=== PATIENT | female | born 1990 | race Caucasian/White ===

== ENCOUNTER 2020-04-23 21:08 | Emergency (ER) | payer BC, MEDICAID, SELFPAY ==
[2020-04-23 21:10] VITALS: BP 144/82; PULSE 94; RESP 16; TEMP 37; O2SAT 99; BMI 35.4
--- NOTE | 2020-04-23 21:16 | PC.NURSE ---
pt given an ice pack and ankle elevated.
--- NOTE | 2020-04-23 21:18 | XR_ITS ---
PROCEDURE: XR FOOT RT MIN 3V CLINICAL INDICATION: fell on rt ankle Posttraumatic pain COMPARISON: XR ANKLE RT MIN 3V from 04/23/2020 FINDINGS: No fracture or dislocation. No lytic or blastic change. There is normal mineralization. The joint spaces are well-preserved. No significant degenerative/arthritic changes. No erosive changes evident. Other findings:None. IMPRESSION: No acute findings. Dictated by: Dionisio Youssef MD 04/24/2020 08:57 Electronically signed by Dionisio Youssef MD in [place] 04/24/2020 08:57
--- NOTE | 2020-04-23 21:40 | HMH.EDLOEX ---
ED Disposition Clinical Impression: Ankle sprain and strain Disposition: Home, Self-Care Condition on Discharge: Good Instructions: Sprain Additional Instructions: no wt bearing and see podiatry and nsaif Referrals: Sho Augustine [Primary Care Provider] - Edna Bowling DPM [Staff Physician] - - Critical Care Critical Care Time: No Attestation: On , the high probability of a clinically significant, sudden or life threatening deterioration of the following system(s) required my full and direct attention, intervention and personal management. The time I documented below is in addition to time spent performing reported procedures but includes the following listed in this critical care notation. Medical Decision Making - Medical Records Medical records reviewed: Yes: I reviewed the patient's medical records. - Padilla Inquiry Pt receiving controlled substance: No Vital Signs: 04/23/20 21:10 Temperature 98.6 F Temperature Source Oral Pulse Rate [Left Radial] 94 H Respiratory Rate 16 Blood Pressure [Right Arm] 144/82 H Blood Pressure Mean [Right Arm] 102 Blood Pressure Source [Right Arm] Automatic Cuff Blood Pressure Position [Right Arm] Sitting 02 Sat by Pulse Oximetry 99 Oxygen Delivery Method Room Air - Lab Data Lab results reviewed: Yes: I reviewed the patient's lab results. Orders (Tests/Meds): ORDERS Category Date Time Status XR ankle RT min 3V Stat Exams 04/23/20 21:18 Ordered XR foot RT min 3V Stat Exams 04/23/20 21:18 Ordered - Radiology Data #1 Image(s): Ankle, Foot/Toes Image Reviewed: Yes I reviewed the patient's radiology image Preliminary Findings: No Fracture Seen Lower Extremity Injury HPI - General Chief Complaint: Extremity Injury, Lower Stated Complaint: [id number] fell injured R ankle Time Seen by Provider: 04/23/20 21:20 Mode of Arrival: Wheelchair Source of Information: Patient, Spouse, Medical Record Limitations: No Limitations Description of Symptoms (Recalled from ER Triage Doc. by RN): pt stated she was walking down a hill when she fell and her right ankle was underneath her. swelling located to pt right ankle. - History of Present Illness HPI Narrative: acute injury rt foot and ankle tonight complaint: ankle injury, foot injury Onset (ago): hour(s) Injury: Right: ankle, foot Type of Injury: inversion Place: home Severity: moderate Context: fall Associated symptoms: snap/pop sensation, swelling, able to partially bear weight Other symptoms: none - Related Data Allergies Allergy/AdvReac Type Severity Reaction Status Date / Time No Known Allergies Allergy Verified 04/23/20 21:18 [facility] History - Hepatitis A Screen Drug use history?: No High risk sexual behaviors?: No History of sexually transmitted infection?: No Currently employed?: No Childcare worker?: No Do you have indoor plumbing?: Yes Do you have electricity?: Yes Attestation statement:: This patient has been screened for Hepatitis A risk factors. I have reviewed the patient's past medical history: Yes Medical History: Reports:: Diabetes Mellitus Type 1, Diabetes Mellitus Type 2 - Social History Alcohol Intake: never Occupational Status: employed ROS Obtained: Yes All systems reviewed & no additional complaints - Constitutional Constitutional: Denies fever(s) - Eyes Eyes: Denies change in vision - ENT Ears, Nose, Mouth, and Throat: Denies sore throat - Cardiovascular Cardiovascular: Denies chest pain - Respiratory Respiratory: No cough - Gastrointestinal Gastrointestingal: Denies: abdominal pain - Genitourinary Female Genitourinary: Denies hematuria - Musculoskeletal Musculoskeletal: Reports as per HPI, Reports joint pain, Reports joint swelling, Reports limited range of motion - Integumentary/Breasts Skin/Breast: Denies rash - Neurologic Neurologic: Denies focal weakness, Denies seizure-like activity Physical Exam - General Ge
[2020-04-23 22:06] VITALS: BP 132/87; PULSE 91; RESP 16; TEMP 37; O2SAT 100
== END 2020-04-23 22:09 | disposition home or self-care (01) ==
LOC: ER 22:09
PROVIDERS: Emergency Provider Emergency Medicine; PCP Pediatrics
DX: S93.401A Sprain of unspecified ligament of right ankle, initial encounter (principal); W17.81XA Fall down embankment (hill), initial encounter
CPT/HCPCS: 73610; 73630; 99283

== ENCOUNTER 2021-11-22 06:44 | Emergency (ER) | payer BC, SELFPAY ==
[2021-11-22] VITALS (8 sets, daily range): BP systolic 103–132; BP diastolic 56–74; PULSE 68–105; RESP 15–18; TEMP 36.6–37.6; O2SAT 97–100; BMI 33.6
--- NOTE | 2021-11-22 07:22 | HMH.EDGENADL ---
ED Disposition Condition on Discharge: Good - Critical Care Critical Care Time: No <Asim Thayer - Last Filed: 11/22/21 07:58> <Lashanda Montemayor - Last Filed: 11/22/21 09:45> Clinical Impression: Upper respiratory infection Qualifiers: URI type: unspecified URI Qualified Code(s): J06.9 - Acute upper respiratory infection, unspecified Disposition: Home, Self-Care Instructions: DI for Acute Bronchitis Referrals: Sho Augustine [Primary Care Provider] - Attestation: On 11/22/21, the high probability of a clinically significant, sudden or life threatening deterioration of the following system(s) required my full and direct attention, intervention and personal management. The time I documented below is in addition to time spent performing reported procedures but includes the following listed in this critical care notation. Medical Decision Making - Medical Records Medical records reviewed: Yes: I reviewed the patient's medical records. - Padilla Inquiry Pt receiving controlled substance: No <Asim Thayer - Last Filed: 11/22/21 07:58> - Lab Data Result diagrams: 11/22/21 07:19 11/22/21 07:19 <Lashanda Montemayor - Last Filed: 11/22/21 09:45> Vital Signs: 11/22/21 06:46 11/22/21 06:56 11/22/21 07:00 Temperature 99.7 F H Temperature Source Oral Pulse Rate 95 H 91 H Pulse Rate [Right Radial] 105 H Respiratory Rate 18 16 15 Blood Pressure 115/71 103/67 L Blood Pressure [Right Arm] 115/71 Blood Pressure Mean 81 79 Blood Pressure Mean [Right Arm] 85 Blood Pressure Source [Right Arm] Automatic Cuff Blood Pressure Position [Right Arm] Sitting 02 Sat by Pulse Oximetry 99 98 100 Oxygen Delivery Method Room Air 11/22/21 07:30 11/22/21 08:00 11/22/21 08:30 Temperature Temperature Source Pulse Rate 89 75 73 Pulse Rate [Right Radial] Respiratory Rate 15 16 15 Blood Pressure 113/56 L 109/57 L 115/64 Blood Pressure [Right Arm] Blood Pressure Mean 71 76 73 Blood Pressure Mean [Right Arm] Blood Pressure Source [Right Arm] Blood Pressure Position [Right Arm] 02 Sat by Pulse Oximetry 98 98 99 Oxygen Delivery Method 11/22/21 09:00 Temperature Temperature Source Pulse Rate 68 Pulse Rate [Right Radial] Respiratory Rate 16 Blood Pressure 114/70 Blood Pressure [Right Arm] Blood Pressure Mean 80 Blood Pressure Mean [Right Arm] Blood Pressure Source [Right Arm] Blood Pressure Position [Right Arm] 02 Sat by Pulse Oximetry 98 Oxygen Delivery Method - Lab Data Lab Results 11/22/21 07:19: WBC 6.4, RBC 5.13, Hgb 14.9, Hct 46.2, MCV 90.2, MCH 29.0, MCHC 32.2, RDW 13.0, Plt Count 321, MPV 10.4, Neut % (Auto) 85.3 H, Lymph % (Auto) 6.7 L, [place] % (Auto) 5.7, Eos % (Auto) 1.3, Baso % (Auto) 1.1, Neut # (Auto) 5.5, Lymph # (Auto) 0.4 L, [place] # (Auto) 0.4, Eos # (Auto) 0.1, Baso # (Auto) 0.1, Total Counted 100, Neutrophils % (Manual) 75, Lymphocytes % (Manual) 18, Monocytes % (Manual) 5, Eosinophils % (Manual) 2, Platelet Estimate Normal, RBC Morphology Normal 11/22/21 07:19: D-Dimer 0.63 H 11/22/21 07:19: Sodium 133 L, Potassium 4.1, Chloride 99, Carbon Dioxide 24, Anion Gap 14.1, BUN 8, Creatinine 0.70, Estimated Creat Clear 161, Estimated GFR 99, Est GFR ( Amer) 120, Glucose 342 H, Calcium 9.1, Total Bilirubin 0.4, AST 23, ALT 16, Alkaline Phosphatase 108, Total Protein 7.2, Albumin 4.3, Globulin 2.9, Albumin/Globulin Ratio 1.5 11/22/21 07:19: SARS-CoV-2 (PCR) Detected A, Influenza A Untype (PCR) Not detected, Influenza Type B (PCR) Not detected Orders (Tests/Meds): ED MEDICATIONS Discontinued Medications Generic Name Dose Route Start Last Admin Trade Name Freq PRN Reason Stop Dose Admin Lactated Ringer's 1,000 mls @ 999 mls/hr 11/22/21 07:15 11/22/21 07:22 Lactated Ringer's 1000 Ml Bag IV 11/22/21 08:15 999 mls/hr .Q1H1M KEITH Administration Medical Decision Narrative: Patient is a 31-year-old female who presents to the ED tod
[2021-11-22 07:42] LABS: Influenza A, PCR Not Detected (NotDetected); Influenza B, PCR Not Detected (NotDetected)
[2021-11-22 07:46] LABS: Basophils # 0.1 K/mm3 (0-0.2); Basophils % 1.1 % (0.1-2.0); Eosinophils # 0.1 K/mm3 (0.0-0.4); Eosinophils % 1.3 % (0.1-12.0); Hematocrit 46.2 % (37.0-47.0); Hemoglobin 14.9 g/dL (12.2-16.2); Lymphocytes # 0.4 K/mm3 (0.7-4.5); Lymphocytes % 6.7 % (10-50); Mean Corpuscular HGB Conc 32.2 g/dL (31.8-35.4); Mean Corpuscular Volume 90.2 fl (81-99); Mean Platelet Volume 10.4 fl (7.4-10.4); Monocytes # 0.4 K/mm3 (0.1-1.0); Monocytes % 5.7 % (1.7-9.3); Neutrophils # 5.5 K/mm3 (1.8-7.8); Neutrophils % 85.3 % (37.0-80.0); Platelet Count 321 K/mm3 (142-424); Red Blood Count 5.13 M/mm3 (4.20-5.40); White Blood Count 6.4 K/mm3 (4.8-10.8)
[2021-11-22 07:52] LABS: Chloride 99 mmol/L (98-107); Potassium 4.1 mmoL/L (3.5-5.1); Sodium 133 mmol/L (136-145)
[2021-11-22 07:55] LABS: Alanine Aminotransferase 16 U/L (12-78); Albumin Level 4.3 g/dl (3.5-5.0); Albumin/Globulin Ratio 1.5 (1.1-1.8); Alkaline Phosphatase 108 U/L (38-126); Anion Gap 14.1 mEq/L (5-15); Aspartate Amino Transferase 23 U/L (14-36); Bilirubin,Total 0.4 mg/dl (0.2-1.3); Blood Urea Nitrogen 8 mg/dl (7-17); Calcium 9.1 mg/dl (8.4-10.2); Carbon Dioxide 24 mmol/L (22.0-30.0); Creatinine Clearance Estimated 161 mL/min (50-200); Estimated Glomerular Filt Rate 99 ml/min (>60); GFR (African American) 120 ML/MIN (>60); Globulin 2.9 g/dL (1.3-3.2); Glucose 342 mg/dl (74-100); Total Protein,Serum 7.2 g/dl (6.3-8.2)
[2021-11-22 07:57] LABS: MANUAL DIFFERENTIAL MANUAL DIFFERENTIAL (MANUAL DIFF)
--- NOTE | 2021-11-22 07:58 | XR_ITS ---
PROCEDURE INFORMATION: Exam: XR Chest Exam date and time: 11/22/2021 7:58 AM Age: 31 years old Clinical indication: Shortness of breath; Additional info: Sob- covid test pending // unable to remove nipple ring TECHNIQUE: Imaging protocol: XR of the chest. Views: 1 view. COMPARISON: No relevant prior studies available. FINDINGS: Lungs: No focal airspace disease. Pleural spaces: Unremarkable. No pleural effusion. No pneumothorax. Heart/Mediastinum: Cardiomediastinal silhouette is within normal limits. Bones/joints: Unremarkable. IMPRESSION: No acute cardiopulmonary abnormality.
[2021-11-22 08:00] LABS: D-Dimer 0.63 ug/mL (0.0-0.5)
[2021-11-22 08:10] LABS: Coronavirus 19, PCR Detected (NotDetected)
[2021-11-22 08:16] LABS: Eosinophils % 2 % (0-3); Lymphocytes % 18 % (10-50); Monocytes % 5 % (2-9); Neutrophils % 75 % (42-76); Platelet Estimate Normal; RBC Morphology Normal; Total Cells Counted 100
== END 2021-11-22 09:55 | disposition home or self-care (01) ==
LOC: ER 07:46
PROVIDERS: Emergency Provider Student in an Organized Health Care Education/Training Program; PCP Pediatrics
DX: U07.1 COVID-19 (principal); J06.9 Acute upper respiratory infection, unspecified
CPT/HCPCS: 71045; 80053; 85007; 85025; 85378; 96365; 99283; C9803; U0003; U0005

== ENCOUNTER 2022-11-22 10:11 | Emergency (ER) | payer BC, SELFPAY ==
[2022-11-22 10:25] VITALS: BP 124/71; PULSE 91; RESP 20; TEMP 36.6; O2SAT 96; BMI 40.0
--- NOTE | 2022-11-22 10:27 | EXP.UTC ---
Discharge Plan Disposition Patient Disposition: Home, Self-Care Condition: Good Prescriptions Prescriptions: New azithromycin [Zithromax] 250 mg tablet 250 mg PO UD DOSE PK Qty: 6 0RF Rx Instructions: Take two (2) tablets today, then one (1) tablet days #2 thru #5 methylprednisolone 4 mg Tablets,Dose Pack 4 mg PO DIRECTED Qty: 21 0RF dexpmtywgaaqeox-lfrfaejrv-SW [Bromfed DM] 2-30-10 mg/5 mL Syrup 5 ml PO Q6H PRN (Reason: Cough) Qty: 240 0RF Referrals Follow up/Referrals: Aminah Ibrahim APRN [Primary Care Provider] - See instructions Activity Restrictions/Add. Instructions Additional Instructions/Restrictions: Drink plenty of fluids. Take tylenol or ibuprofen for pain or fever. Take the medications as directed. Follow up with your regular doctor. GO TO THE ER FOR ANY WORSENING SYMPTOMS Clinical Impressions Clinical Impression: Sinusitis, Otitis media Instructions Patient Instructions: Middle Ear Infection, DI for Sinusitis Discharge ED Provider: Damaso Layne [facility] General Stated complaint: sore throat,ear pain Time Seen by Provider: 11/22/22 10:27 History of Present Illness Provider Complaint: She states that she has had right ear pain and sinus congestion for the past 2 days. Related Data Previous Rx's Medication Instructions Recorded azithromycin 250 mg tablet 250 mg PO UD DOSE PK #6 tabs 11/22/22 (Zithromax) yvgugetlylaqoth-hbsdnxlikykjwut-DE 5 ml PO Q6H PRN Cough #240 mL 11/22/22 2 mg-30 mg-10 mg/5 mL oral syrup (Bromfed DM) methylprednisolone 4 mg tablets in 4 mg PO DIRECTED #21 tabs 11/22/22 a dose pack Allergies Allergy/AdvReac Type Severity Reaction Status Date / Time No Known Allergies Allergy Verified 04/23/20 21:18 [facility] Disclaimer: The information contained in this section may have been updated after the patient was seen, as this information can be updated by other users. Social History Smoking Status: Never smoker alcohol intake: never current occupational status: employed Travel in the last 8 weeks: None ROS Obtained: Yes All systems reviewed & no additional complaints except as documented Constitutional Constitutional: Denies chills, Reports fever(s) and Reports poor appetite Eyes Eyes: Denies eye discharge ENT Ears, Nose, Mouth, and Throat: Denies ear discharge, Reports otalgia, Denies hearing loss, Denies sinus pain and Reports sore throat Cardiovascular Cardiovascular: Denies chest pain and Denies dyspnea Respiratory Respiratory: Denies chest congestion, Reports cough and Denies dyspnea Gastrointestinal Gastrointestingal: Denies abdominal pain, diarrhea, nausea or vomiting Musculoskeletal Musculoskeletal: Denies arthralgias Integumentary/Breasts Skin/Breast: Denies rash Physical Exam General General appearance: alert and in no apparent distress Head Head exam: atraumatic, normocephalic and normal inspection Eye Eye exam: Present normal appearance; Absent PERRL or EOMI ENT ENT exam: Present mucous membranes moist and normal external ear exam Expanded ENT Exam TM/Canal exam: Bilateral TM: erythema, bulging and effusion Nose exam: Absent sinus tenderness Nasal speculum exam: Bilateral: normal Mouth exam: Present normal external inspection and other; Absent drooling Teeth exam: Present normal inspection Throat exam: Present tonsillar erythema and tonsillomegaly Neck Neck exam: Present normal inspection, full ROM and trachea midline; Absent tenderness, meningismus or lymphadenopathy Chest Chest inspection: Present normal inspection and symmetric chest wall rise; Absent tenderness Respiratory Respiratory exam: Present normal lung sounds bilaterally; Absent respiratory distress, wheezes or stridor Cardiovascular Cardiovascular exam: Present regular rate, normal rhythm and normal heart sounds; Absent tachycardia or irregular rhythm Abdominal Exam A
[2022-11-22 10:58] LABS: UTC Strep Screen (Rapid) Negative (Negative)
[2022-11-22 11:14] VITALS: BP 124/71; PULSE 91; RESP 20; TEMP 36.6; O2SAT 96
== END 2022-11-22 11:14 | disposition home or self-care (01) ==
PROVIDERS: Emergency Provider Nurse Practitioner Family; PCP Nurse Practitioner Family
DX: H66.93 Otitis media, unspecified, bilateral (principal); J32.9 Chronic sinusitis, unspecified
CPT/HCPCS: 87880; 99212; 99213; G0463